=== PATIENT | female | born 1965 | race Two or more races ===

== ENCOUNTER → 2024-05-31 | Outpatient (CLI) | payer MEDICAID, SELFPAY ==
--- NOTE | 2024-05-31 09:45 | XR_ITS ---
Examination: Screening digital mammography, bilateral Computer aided detection 3-D breast Tomosynthesis, bilateral Date and time of exam: 05/31/2024, 9:31 AM Comparisons: February 2023, April 2023 Indications: Screening Technique: Nonmagnified MLO, CC views of the breasts to been obtained, reconstructed from 3-D Tomosynthesis images. R2 computer aided detection program utilized for evaluation of suspicious masses and/or abnormal calcifications. 3-D Tomosynthesis images obtained. Technologist: Findings: The breasts are heterogeneously dense, which may obscure small masses. Asymmetry posterior right breast, 6:00 in the CC view. Multiple partially obscured oval masses appear stable. No evidence of suspicious calcifications. No calcifications. Impression: Asymmetry posterior right breast 6:00. Spot compression mammographic views in this region is recommended. Multiple partially obscured oval masses bilaterally. Bilateral breast ultrasound is recommended for further characterization. BI-RADS category 0: Incomplete assessment; need additional imaging evaluation
== END | disposition home or self-care (01) ==
LOC: CDIM 09:22
PROVIDERS: Referring Provider Nurse Practitioner Family; Visit Provider Nurse Practitioner Family
DX: Z12.31 Encounter for screening mammogram for malignant neoplasm of breast (principal); N64.89 Other specified disorders of breast
CPT/HCPCS: 77063; 77067